=== PATIENT | female | born 1980 | race Caucasian/White ===

== ENCOUNTER 2017-10-06 05:45 | Emergency (ER) | payer OTHER ==
--- NOTE | 2017-10-06 05:56 | PDOC ---
History of Present Illness - General History Source: Patient Exam Limitations: No Limitations - History of Present Illness Initial Comments: 10/06/17 06:22 The patient is a 37 year old female with no significant past medical history who presents to the emergency department for evaluation of right foot pain . The patient reports moderate right foot pain after rolling her right foot near the pillowcase sewer drain while texting. Pt describes the right foot pain as sharp and severe, shooting up the right leg intermittently. 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 The patient reports taking ibuprofen 600mg with no alleviation to pain. The patient denies chest pain, shortness of breath, headache, fever, chills, nausea, vomiting, and any urinary/bowel symptoms. Allergies: NKDA Social History: Social alcohol consumption and marijuana use reported. No reported cigarette use. <Fabien Gong - Last Filed: 10/06/17 06:23> <Rubi Bradford - Last Filed: 10/06/17 20:16> - General Chief Complaint: Pain Stated Complaint: RIGHT FOOT INJURY Time Seen by Provider: 10/06/17 05:56 Past History <Fabien Gong - Last Filed: 10/06/17 06:23> <Rubi Bradford - Last Filed: 10/06/17 20:16> - Past Medical History Allergies/Adverse Reactions: Allergies Allergy/AdvReac Type Severity Reaction Status Date / Time No Known Allergies Allergy Verified 10/06/17 06:00 Home Medications: Ambulatory Orders Alprazolam [Xanax] 0.5 mg PO ASDIR 10/06/17 Review of Systems - Review of Systems Able to Perform ROS?: Yes Comments:: GENERAL/CONSTITUTIONAL: No fever or chills. No weakness. HEAD, EYES, EARS, NOSE AND THROAT: No change in vision. No ear pain or discharge. No sore throat. CARDIOVASCULAR: No chest pain or shortness of breath. RESPIRATORY: No cough, wheezing, or hemoptysis. GASTROINTESTINAL: No nausea, vomiting, diarrhea or constipation. GENITOURINARY: No dysuria, frequency, or change in urination. MUSCULOSKELETAL: (+)Right foot pain. No neck or back pain. SKIN: No rash NEUROLOGIC: No headache, vertigo, loss of consciousness, or change in strength/ sensation. ENDOCRINE: No increased thirst. No abnormal weight change. HEMATOLOGIC/LYMPHATIC: No anemia, easy bleeding, or history of blood clots. ALLERGIC/IMMUNOLOGIC: No hives or skin allergy. <Fabien Gong - Last Filed: 10/06/17 06:23> *Physical Exam - Vital Signs Last Vital Signs Temp Pulse Resp BP Pulse Ox 97.4 F L 74 18 118/86 98 10/06/17 05:54 10/06/17 05:54 10/06/17 05:54 10/06/17 05:54 10/06/17 05:54 - Physical Exam Comments: GENERAL: Awake, alert, and fully oriented, in no acute distress HEAD: No signs of trauma EYES: PERRLA, EOMI, sclera anicteric, conjunctiva clear ENT: Auricles normal inspection, hearing grossly normal, nares patent, oropharynx clear without exudates. Moist mucosa NECK: Normal ROM, supple. LUNGS: Breath sounds equal, clear to auscultation bilaterally. No wheezes, and no crackles HEART: Regular rate and rhythm, normal S1 and S2, no murmurs, rubs or gallops ABDOMEN: Soft, nontender, normoactive bowel sounds. No guarding, no rebound. No masses EXTREMITIES: (+)Right foot pain at base of 5th metatarsal. (+)Mild swelling of soft tissue at lateral aspect of right foot, otherwise normal. NEUROLOGICAL: Cranial nerves II through XII grossly intact. Normal speech. SKIN: Warm, Dry, normal turgor, no rashes or lesions noted. <Fabien Gong - Last Filed: 10/06/17 06:23> Medical Decision Making - Medical Decision Making 10/06/17 06:57 Pt will be signed out to the day team; awaiting official XR result. SHe has a small calcified fragment (ruptured tendon?) lateral aspect of the foot. 2 stefanie wraps placed on the foot. <Rbui Bradford - Last Filed: 10/06/17 20:16> *DC/Admit/Observation/Transfer - Attestations Scribe Attestion: Documentation prepared by Fabien Gong, acting as medical director occupational health for Rubi Bradford MD. <Fabien Gong - Last Filed: 10/06/17 06:23> <Rubi Bradford - Last Filed: 10/06/17 20:16> Diagnosis at time of Disposition: Injury, foot - Discharge Dispostion Disposition: HOME Condition at time of disposition: Good - Referrals Referrals: Sheng Whitaker MD [Staff Physician] - - Patient Instructions Printed Discharge Instructions: DI for Foot Sprain Additional Instructions: You can alternate between Motrin and Tylenol for your pain. Should your pain persist for more than 5 days, please make an appointment to see orthopedic surgery (referral provided). Return to the Emergency Department for any new/ worsening/concerning symptoms.
[2017-10-06 06:00] VITALS: BMI 30.7
[2017-10-06] MEDS ORDERED: ACETAMINOPHEN 325 MG TABLET (FP) ONE (06:39)
[2017-10-06] MEDS ORDERED: ACETAMINOPHEN 325 MG TABLET (FP) PO ONE (06:39)
--- NOTE | 2017-10-06 07:35 | PDOC ---
*Physical Exam - Vital Signs Last Vital Signs Temp Pulse Resp BP Pulse Ox 97.4 F L 74 18 118/86 98 10/06/17 05:54 10/06/17 05:54 10/06/17 05:54 10/06/17 05:54 10/06/17 05:54 - Physical Exam Respiratory/Chest: positive: Lungs Clear, Normal Breath Sounds Cardiovascular: positive: S1, S2 Vascular Pulses: Dorsalis-Pedis (R): 2+, Doralis-Pedis (L): 2+ Extremity: positive: Normal Capillary Refill, Normal Inspection. negative: Coldness, Cyanosis ED Treatment Course - Medications Given in the ED: ED Medications Discontinued Medications Generic Name Dose Route Start Last Admin Trade Name Freq PRN Reason Stop Dose Admin Acetaminophen 325 mg 10/06/17 06:39 10/06/17 06:41 Tylenol - PO 10/06/17 06:40 325 mg ONCE ONE Administration Oxycodone/Acetaminophen 1 combo 10/06/17 06:39 10/06/17 06:40 Percocet 5/325 - PO 10/06/17 06:40 1 combo ONCE ONE Administration Medical Decision Making - Medical Decision Making 10/06/17 07:40 37 year old female presents w/ R foot pain following manual eversion of her foot while walking. Patient has been ambulatory with significant pain. Wet read of X-ray shows no fracture/dislocation. Pain control with NSAIDS, elevation of limb, while awaiting formal XR report. 10/06/17 08:25 X ray shows no fracture. Will discharge home with supportive care. I discussed the physical exam findings, ancillary test results and final diagnoses with the patient. I answered all of the patient's questions. The patient was satisfied with the care received and felt comfortable with the discharge plan and treatment plan. The patient will return to the Emergency Department with any new, persistent or worsening symptoms. *DC/Admit/Observation/Transfer Diagnosis at time of Disposition: Injury, foot - Discharge Dispostion Disposition: HOME Condition at time of disposition: Good Decision to Admit order: No - Referrals Referrals: Sheng Whitaker MD [Staff Physician] - - Patient Instructions Printed Discharge Instructions: DI for Foot Sprain Additional Instructions: You can alternate between Motrin and Tylenol for your pain. Should your pain persist for more than 5 days, please make an appointment to see orthopedic surgery (referral provided). Return to the Emergency Department for any new/ worsening/concerning symptoms. - Post Discharge Activity
[2017-10-06] MEDS ORDERED: IBUPROFEN 400 MG TABLET (FP) PO ONE ×2 (07:40→07:51)
[2017-10-06 08:48] VITALS: BP 118/71; PULSE 70; TEMP 98.1
== END 2017-10-06 08:53 | disposition home or self-care (01) ==
LOC: JER 05:45
DX: S99.812A Other specified injuries of left ankle, initial encounter (principal); W18.39XA Other fall on same level, initial encounter; Y93.89 Activity, other specified; Y92.414 Local residential or business street as the place of occurrence of the external cause; Y99.8 Other external cause status
CPT/HCPCS: 73630-TC-RT-FY; 99282-25